=== PATIENT | male | born 1960 | race Caucasian/White ===

== ENCOUNTER 2020-03-03 15:26 | Emergency (ER) | payer MEDICARE, MEDICAID ==
[~2020-03-03] VITALS: Ht 167.6 cm; Wt 63.0 kg
[2020-03-03] MEDS ORDERED: CARAFATE1 GM PO (15:34)
[2020-03-03] MEDS ORDERED: HYDROXYZINE HCL10 M2 PO (15:34)
[2020-03-03] MEDS ORDERED: OMEPRAZOLE40 MG PO (15:34)
[2020-03-03] MEDS ORDERED: PROTONIX40 M2 PO (15:34)
[2020-03-03] MEDS ORDERED: HYDROCODON-ACE1 EA11 PO (15:35)
[2020-03-03] MEDS ORDERED: CALCIUM500 MG PO (15:35)
[2020-03-03] MEDS ORDERED: AMBIEN5 MG PO (15:35)
[2020-03-03 16:11] LABS: ABSOLUTE EOSINOPHILS 0.1 thou/uL (0.0-0.7); ABSOLUTE LYMPHOCYTES 0.6 thou/uL (0.8-5.3); ABSOLUTE MONOCYTES 0.3 thou/uL (0.0-1.2); ABSOLUTE NEUTROPHILS 3.5 thou/uL (1.6-8.1); BASOPHILS 0.3 %; EOSINOPHILS 1.6 %; HEMATOCRIT 28.7 % (42.0-52.0); LYMPHOCYTES 13.6 %; MCH 34.2 pg (26.0-34.0); MCHC 34.7 g/dL (28.0-37.0); MCV 98.4 fL (80.0-100.0); MONOCYTES 7.5 %; MPV 7.3 fl. (7.2-11.1); NUCLEATED RBCS 0 /100WBC; PLATELET COUNT* 116 thou/uL (150-400); RBC 2.92 mil/uL (4.50-6.00); WBC 4.6 thou/uL (4.0-11.0)
[2020-03-03 16:22] LABS: ANION GAP 10 mmol/L (7-16); BUN 40 mg/dL (7-18); CALCIUM 8.6 mg/dL (8.5-10.1); CHLORIDE 98 mmol/L (98-107); CO2 30 mmol/L (21-32); CREATININE 7.4 mg/dL (0.6-1.3); GLUCOSE 100 mg/dL (70-99); POTASSIUM 5.1 mmol/L (3.5-5.1); SODIUM 138 mmol/L (136-145)
[2020-03-03 16:33] LABS: ALBUMIN 3.7 g/dL (3.4-5.0); ALKALINE PHOSPHATASE 100 U/L (46-116); LIPASE 138 U/L (73-393); NT-PRO BRAIN NAT PEPTIDE > 35000 pg/mL (<300); SGOT 21 U/L (15-37); SGPT 18 U/L (30-65); TOTAL BILIRUBIN 1.2 mg/dL (<0.1-1.0); TOTAL PROTEIN 7.7 g/dL (6.4-8.2)
[2020-03-03] MEDS ORDERED: ZPAK PO (17:21)
[2020-03-03 17:27] VITALS: BP 133/80
--- NOTE | 2020-03-04 16:01 | EKG ---
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[facility] : 1960 Requested By: Krissy Mcclure Order Number: [id number] : Sam Miller Measurements Intervals [place] Rate: 105 P: 76 NC: 191 QRS: -1 QRSD: 90 T: QT: 403 QTc: 533 Interpretive Statements Sinus tachycardia Left atrial enlargement Borderline T abnormalities, lateral leads Prolonged QT interval No previous ECG available for comparison Electronically Signed On 03-04-2020 16:01:09 CDT by Sam Miller [email or web address] <ELECTRONICALLY SIGNED> By: Sam Miller MD, [facility] 03/04/20 1601 1551 1551 Sam Miller MD, [facility] /EPI
== END 2020-03-03 17:28 | disposition left against medical advice (07) ==
LOC: M.ERS 15:26
PROVIDERS: Nurse Practitioner Family
DX: J18.9 Pneumonia, unspecified organism (principal); R79.89 Other specified abnormal findings of blood chemistry; Z20.828 Contact with and (suspected) exposure to other viral communicable diseases; N18.6 End stage renal disease; Z99.2 Dependence on renal dialysis

== ENCOUNTER 2020-03-09 15:08 | Emergency (ER) | payer MEDICARE, MEDICAID ==
[~2020-03-09] VITALS: Ht 167.6 cm; Wt 64.3 kg
--- NOTE | ~2020-03-09 | H ---
[facility] [address] [place] [address] HISTORY AND PHYSICAL Name: SHANTEL BOSTON Room: [address] IN [place]#: [id number] Admission: 03/09/20 Attend Phys: Wili Desir, Discharge: 03/09/20 Date of : 58 Report #: [id number] THIS REPORT FOR: //name// cc: Sen Curry MD, Stephen R. MD ~ Patient was here less than 24 hour please refer to the final summation note. By: 0640Medical Records Staff ÓSCAR /MELA
[~2020-03-09 15:08] MED LIST: AMBIEN5 MG PO; CALCIUM500 MG PO; CARAFATE1 GM PO; HYDROCODON-ACE1 EA11 PO; HYDROXYZINE HCL10 M2 PO; OMEPRAZOLE40 MG PO; PROTONIX40 M2 PO; ZPAK PO
[2020-03-09 15:11] VITALS: BP 142/88
[2020-03-09 15:49] LABS: ABSOLUTE BASOPHILS 0.1 thou/uL (0.0-0.2); ABSOLUTE EOSINOPHILS 0.1 thou/uL (0.0-0.7); ABSOLUTE LYMPHOCYTES 0.7 thou/uL (0.8-5.3); ABSOLUTE MONOCYTES 0.4 thou/uL (0.0-1.2); ABSOLUTE NEUTROPHILS 4.5 thou/uL (1.6-8.1); BASOPHILS 1.2 %; EOSINOPHILS 1.2 %; HEMATOCRIT 29.2 % (42.0-52.0); LYMPHOCYTES 12.7 %; MCH 34.2 pg (26.0-34.0); MCHC 34.2 g/dL (28.0-37.0); MCV 100.1 fL (80.0-100.0); MONOCYTES 6.1 %; MPV 7.7 fl. (7.2-11.1); NUCLEATED RBCS 0 /100WBC; PLATELET COUNT* 121 thou/uL (150-400); POLYS 78.8 %; RBC 2.92 mil/uL (4.50-6.00); RDW-CV 15.2 % (10.5-14.5); WBC 5.7 thou/uL (4.0-11.0)
[2020-03-09 15:58] LABS: ANION GAP 11 mmol/L (7-16); BUN 58 mg/dL (7-18); CHLORIDE 98 mmol/L (98-107); CO2 30 mmol/L (21-32); CREATININE 10.4 mg/dL (0.6-1.3); GLUCOSE 98 mg/dL (70-99); POTASSIUM 5.6 mmol/L (3.5-5.1); SODIUM 139 mmol/L (136-145)
[2020-03-09 16:09] LABS: ALBUMIN 3.9 g/dL (3.4-5.0); ALKALINE PHOSPHATASE 103 U/L (46-116); NT-PRO BRAIN NAT PEPTIDE > 35000 pg/mL (<300); SGOT 23 U/L (15-37); SGPT 19 U/L (30-65); TOTAL BILIRUBIN 0.9 mg/dL (<0.1-1.0); TOTAL PROTEIN 7.6 g/dL (6.4-8.2)
[2020-03-09] MEDS ORDERED: LEVAQUIN 500 M500 MG PO (21:39)
[2020-03-09 22:10] VITALS: BP 130/78
--- NOTE | 2020-03-10 14:57 | EKG ---
[place] [address] ELECTROCARDIOGRAM REPORT Name: SHANTEL BOSTON Room: [address] IN [facility]#: [id number] Admission: 03/09/20 Attend Phys: Wili Mcdonald Discharge: 03/09/20 Date of : 58 Date of Service: 03/09/20 1515 Report #: [id number] THIS REPORT FOR: //name// [facility] ED Test Date: 2020-03-09 Test Time: 15:15:41 Pat Name: SHANTEL BOSTON Department: Room: [facility] Gender: M Warranty Clerk: : 1960 Requested By: Dany Sharma Order Number: [id number] MD: Sam Miller Measurements Intervals [place] Rate: 109 P: 79 [place]: 180 QRS: -16 QRSD: 96 T: 87 QT: 354 QTc: 477 Interpretive Statements Sinus tachycardia Probable left atrial enlargement Borderline left axis deviation Consider anterior infarct Compared to ECG 03/03/2020 15:51:18 Myocardial infarct finding now possible T-wave abnormality persists Electronically Signed On 03-10-2020 14:57:17 CDT by Sam Miller [email or web address] <ELECTRONICALLY SIGNED> By: Sam Miller MD, FAC 03/10/20 1457 1515 1515 Sam Miller MD, [facility] /EPI
== END 2020-03-09 22:12 | disposition still patient (30) ==
LOC: M.ERS 15:08 → M.TBA-ER 16:33
PROVIDERS: Physician Assistant
DX: J18.9 Pneumonia, unspecified organism (principal); N18.9 Chronic kidney disease, unspecified; R79.89 Other specified abnormal findings of blood chemistry; R06.03 Acute respiratory distress; K21.9 Gastro-esophageal reflux disease without esophagitis; Z99.2 Dependence on renal dialysis; Z20.828 Contact with and (suspected) exposure to other viral communicable diseases